=== PATIENT | female | born 1975 | race Caucasian/White ===

== ENCOUNTER 2020-11-06 07:40 | Outpatient (REF) | payer BC, SELFPAY ==
[2020-11-06 08:05] LABS: MANUAL DIFF FLAG NO
[2020-11-06 08:12] LABS: Eosinophils Absolute Auto 0.2 X10*3/uL (0.0-0.4); Eosinophils Percent Auto 4.1 % (0-4); Hematocrit 41.3 % (37-47); Hemoglobin 13.9 g/dl (12.0-16.0); Imm Gran Abs Auto 0.02 X10*3/uL (0.00-0.03); Imm Gran Pct Auto 0.5 % (0.0-0.4); Lymphocytes Absolute Auto 1.5 X10*3/uL (1.2-4.9); Mean Corpuscular HGB Conc 33.7 g/dl (31.0-35.0); Mean Corpuscular Hemoglobin 29.8 pg (27.0-33.0); Mean Corpuscular Volume 88.4 fL (80-98); Mean Platelet Volume 10.3 fL (9.4-12.3); Monocytes Absolute Auto 0.3 X10*3/uL (0.1-1.2); Neutrophils Absolute Auto 2.1 X10*3/uL (2.0-8.3); Neutrophils Percent Auto 49.4 % (45-73); Platelet Count 204 X10*3/uL (160-400); Red Blood Count 4.67 X10*6/uL (4.20-5.50); Red Cell Distribution Width 12.3 % (11.0-16.0); White Blood Count 4.1 X10*3/uL (4.8-10.8)
[2020-11-06 08:37] LABS: Alanine Aminotransferase 12 U/L (0-31); Albumin Level 4.4 g/dL (3.5-5.0); Alkaline Phosphatase 57 U/L (39-117); Anion Gap 9 (12-20); Aspartate Amino Transferase 16 U/L (5-31); Bilirubin Total 0.6 mg/dL (0.0-1.0); Blood Urea Nitrogen 14 mg/dL (9-16); Calcium 9.2 mg/dL (8.4-10.2); Carbon Dioxide 26 mmol/L (22-29); Chloride 107 mmol/L (96-108); Cholesterol 202 mg/dL; Estimated Glomerular Filt Rate > 60; Glucose Fasting 96 mg/dL (60-99); HDL Cholesterol 47 mg/dL; LDL Cholesterol Calculated 135 mg/dl; Magnesium 2.1 mg/dL (1.6-2.6); Phosphorus 3.5 mg/dL (2.7-4.5); Potassium 4.4 mmol/L (3.3-5.1); Sodium 138 mmol/L (135-145); Total Protein 6.7 g/dL (6.5-8.0); Triglycerides 100 mg/dL
[2020-11-06 12:14] LABS: Vitamin D 25-OH Total 30.9 ng/mL (>30)
[2020-11-06 17:35] LABS: Folate 4.6 ng/mL (> or = 4.0); Vitamin B12 245 pg/mL (200-900)
== END 2020-11-06 07:41 | disposition home or self-care (01) ==
LOC: HO.LAB 07:40
PROVIDERS: PCP Internal Medicine; Visit Provider Internal Medicine
DX: Z00.00 Encounter for general adult medical examination without abnormal findings (principal); K90.0 Celiac disease
CPT/HCPCS: 36415; 80053; 80061; 82306; 82607; 82746; 83735; 84100; 85025

== ENCOUNTER 2022-07-11 08:34 | Outpatient (REF) | payer BC, SELFPAY ==
[2022-07-11 08:53] LABS: MANUAL DIFF FLAG NO
[2022-07-11 09:29] LABS: Basophils Absolute Auto 0.1 X10*3/uL (0.0-0.2); Basophils Percent Auto 1.1 % (0-2); Eosinophils Absolute Auto 0.1 X10*3/uL (0.0-0.4); Eosinophils Percent Auto 2.6 % (0-4); Hematocrit 40.5 % (37.0-47.0); Hemoglobin 13.8 g/dl (12.0-16.0); Imm Gran Abs Auto 0.01 X10*3/uL (0.00-0.03); Imm Gran Pct Auto 0.2 % (0.0-0.4); Lymphocytes Absolute Auto 1.5 X10*3/uL (1.2-4.9); Lymphocytes Percent Auto 32.5 % (20-40); Mean Corpuscular HGB Conc 34.1 g/dl (31.0-35.0); Mean Corpuscular Hemoglobin 30.1 pg (27.0-33.0); Mean Corpuscular Volume 88.2 fL (80.0-98.0); Mean Platelet Volume 10.4 fL (9.4-12.3); Monocytes Absolute Auto 0.3 X10*3/uL (0.1-1.2); Monocytes Percent Auto 6.4 % (2-11); Neutrophils Absolute Auto 2.6 x10*3/uL (2.0-8.3); Neutrophils Percent Auto 57.2 % (45-73); Platelet Count 211 X10*3/uL (160-400); Red Blood Count 4.59 X10*6/uL (4.20-5.50); Red Cell Distribution Width 12.2 % (11.0-16.0); White Blood Count 4.5 X10*3/uL (4.8-10.8)
[2022-07-11 10:09] LABS: Alanine Aminotransferase 13 U/L (0-31); Alkaline Phosphatase 49 U/L (39-117); Anion Gap 10 (12-20); Aspartate Amino Transferase 15 U/L (5-31); Bilirubin Total 0.8 mg/dL (0.0-1.0); Blood Urea Nitrogen 22 mg/dL (9-16); Calcium 8.6 mg/dL (8.4-10.2); Carbon Dioxide 25 mmol/L (22-29); Chloride 109 mmol/L (96-108); Cholesterol 236 mg/dL; Estimated Glomerular Filt Rate > 60; Glucose Fasting 84 mg/dL (60-99); HDL Cholesterol 51 mg/dL; LDL Cholesterol Calculated 168 mg/dl; Magnesium 1.9 mg/dL (1.6-2.6); Potassium 4.4 mmol/L (3.3-5.1); Sodium 140 mmol/L (135-145); Total Protein 6.1 g/dL (6.5-8.0); Triglycerides 86 mg/dL
[2022-07-11 10:28] LABS: Vitamin D 25-OH Total 53.4 ng/mL (>30)
== END 2022-07-11 08:35 | disposition home or self-care (01) ==
LOC: HO.LAB 08:34
PROVIDERS: PCP Internal Medicine; Visit Provider Internal Medicine
DX: Z00.00 Encounter for general adult medical examination without abnormal findings (principal); I51.9 Heart disease, unspecified; G25.81 Restless legs syndrome
CPT/HCPCS: 36415; 80053; 80061; 82306; 83735; 85025

== ENCOUNTER 2022-08-27 15:40 | Outpatient (REF) | payer BC, SELFPAY ==
[2022-08-27 15:54] LABS: MANUAL DIFF FLAG NO
[2022-08-27 16:35] LABS: Basophils Percent Auto 0.6 % (0-2); Eosinophils Absolute Auto 0.2 X10*3/uL (0.0-0.4); Eosinophils Percent Auto 2.8 % (0-4); Hematocrit 38.5 % (37.0-47.0); Hemoglobin 13.3 g/dl (12.0-16.0); Imm Gran Abs Auto 0.02 X10*3/uL (0.00-0.03); Imm Gran Pct Auto 0.3 % (0.0-0.4); Lymphocytes Absolute Auto 1.8 X10*3/uL (1.2-4.9); Lymphocytes Percent Auto 27.7 % (20-40); Mean Corpuscular HGB Conc 34.5 g/dl (31.0-35.0); Mean Corpuscular Hemoglobin 30.4 pg (27.0-33.0); Mean Corpuscular Volume 87.9 fL (80.0-98.0); Mean Platelet Volume 10.4 fL (9.4-12.3); Monocytes Absolute Auto 0.3 X10*3/uL (0.1-1.2); Monocytes Percent Auto 5.1 % (2-11); Neutrophils Absolute Auto 4.1 x10*3/uL (2.0-8.3); Neutrophils Percent Auto 63.5 % (45-73); Platelet Count 251 X10*3/uL (160-400); Red Blood Count 4.38 X10*6/uL (4.20-5.50); Red Cell Distribution Width 12.1 % (11.0-16.0); White Blood Count 6.5 X10*3/uL (4.8-10.8)
[2022-08-27 17:00] LABS: Anion Gap 10 (12-20); Blood Urea Nitrogen 13 mg/dL (9-16); C Reactive Protein < 0.10 mg/dL (< or = 0.50); Calcium 9.2 mg/dL (8.4-10.2); Carbon Dioxide 28 mmol/L (22-29); Chloride 106 mmol/L (96-108); Estimated Glomerular Filt Rate > 60; Glucose Random 86 mg/dL (60-115); Potassium 4.5 mmol/L (3.3-5.1); Sodium 139 mmol/L (135-145)
[2022-08-27 17:15] LABS: Erythrocyte Sedimentation Rate 4 MM/HR (0-20)
== END 2022-08-27 15:41 | disposition home or self-care (01) ==
LOC: HO.LAB 15:40
PROVIDERS: PCP Internal Medicine; Visit Provider Internal Medicine
DX: M79.641 Pain in right hand (principal)
CPT/HCPCS: 36415; 80048; 82550; 85025; 85652; 86140

== ENCOUNTER 2022-11-17 20:07 | Outpatient (REF) | payer BC, SELFPAY | END 2022-11-17 20:08 | disposition home or self-care (01) | LOC: HO.LNP 20:07 | PROVIDERS: Visit Provider Internal Medicine | DX: J02.9 Acute pharyngitis, unspecified (principal) | CPT/HCPCS: 87070; 87147 ==

== ENCOUNTER 2025-01-10 12:01 | Outpatient (AMB) | payer BC, SELFPAY ==
--- OUTSIDE RECORDS SUMMARY | 2024-10-30 11:15 | XMS_ITS ---
Author Organization [facility] [address] Address [address] [place] [address] Care Team Providers Care Brick Offbearer Name Role Phone PACHECO NICOLAS Unavailable [phone] REASON FOR VISIT labs Encounters Encounter Location Date Provider Diagnosis [facility] [address] [place] [address] 10/30/2024 NICOLAS BERGMAN Plan Of Treatment Next Appt Details Provider Name:NICOLAS MANDEEP Garcia, 02/26/2025 03:15:00 PM, [address], [place], [address], Provider Name:NICOLAS MANDEEP Garcia, 11/08/2025 09:00:00 AM, [address], [place], [address], Progress Notes * Kenneth PEREZaDOB:1975 (49 yo F)Acc No.[id number]:10/30/2024 CPE Patient: Farzana ARTIS Provider: Anthony BERGMAN PA-C :1975 A ge:49 Y S ex:Female Date:10/30/2024 Address:[address] [place] [address] [id number] Subjective: * Chief Complaints: * 1 . Labs. * Medical History: Objective: * Vitals: Assessment: Plan: * Treatment: * Images: Billing Information: * Visit Code: * Procedure Codes: Care Plan Details* * Electronic signature of CHARLIE BERGMAN PA-C on 01/10/2025 at 02:53 PM EDT Sign off status: Pending * Provider: Anthony BERGMAN PA-C Date: 0 10/30/2024 Generated for Cody patel/Shaka/Pavan on: 0 01/10/2025 02:53 PM EDT
--- NOTE | 2025-01-10 12:15 | A.OFFVIS_ITS ---
Vital Signs 01/10/25 12:18 Height 6 ft 2 in Weight 185 lb BMI 23.7 Blood Pressure Location Lt brachial Position Sitting Intake Visit Reasons: Colonoscopy Screening Intake Note: Patient new consult for 1st pre Colonoscopy screening. Patient denies any GI issues. Store Worker Required: No Accompanied by: Self / Same As Patient Allergies gluten Allergy (Intermediate, Verified 01/10/25 12:45) Diarrhea Medication List - Last Reconciled 01/10/25 by Rubi Alves CNP amitriptyline 25 mg PO BEDTIME atorvastatin 10 mg PO DAILY ropinirole 0.5 mg PO QPM HPI HPI Colonoscopy Screening: Details: Patient is a 49-year-old female with PMH of celiac, anxiety, depression, hyperlipidemia and restless leg syndrome. Referred by PCP for pre colonoscopy screening. Farzana reports a history of celiac disease diagnosed at age 38, managed with a gluten-free diet. She describes intermittent bowel irregularity over the past several years, characterized by episodes of diarrhea?typically lasting approximately two days?following inadvertent gluten exposure, often when consuming food outside the home. This is followed by constipation, with diminished or absent bowel movements for 7?10 days post-exposure. At baseline, with adherence to a gluten-free regimen, she passes stool every two days, often firm and requiring some straining for evacuation. She intermittently uses Senna- based (vegetable) laxatives and stool softeners as needed to relieve constipation, but avoids daily use due to adverse effects and concerns over long-term use of laxatives. She occasionally feels bloated and experiences abdominal discomfort after gluten exposure, but describes symptoms as bearable. Current management is primarily nonpharmacologic, focusing on dietary vigilance, increased water, and fiber, with only episodic laxatives. Medical history includes hyperlipidemia, for which she is prescribed statin therapy. Psychiatric history noted for anxiety and insomnia, previously managed with medication. Patient denies: fever/chills, n/v, appetite changes, pyrosis, regurgitation, dysphasia, unintentional wt loss or melena/hematochezia. Social hx: -Diet: Strict gluten-free diet with occasional unintended exposures, variable fiber intake, attempts at increased water consumption -Alcohol: Approximately every 2 weeks, 2?4 drinks per occasion -denies recreational drug use -non-smoker - family hx as below -denies personal hx of CA -denies significant cardiopulmonary history -tolerated anesthesia in the past without difficulty. PFSH Medical History (Updated 01/10/25 @ 13:39 by Rubi Alves CNP) Hyperlipemia Celiac disease Colon cancer screening Family History (Updated 01/10/25 @ 12:26 by Seda Courtney) Father Prostate CA Stroke Mother Hyperlipemia Hyperthyroidism Paternal Grandfather Bone cancer Maternal Grandfather No problems noted. Maternal Grandmother Hyperlipemia Heart disease Social History (Updated 12/26/24 @ 09:39 by Seda Courtney) Household Members: Family Alcohol intake: current Alcohol intake frequency: holidays/special occasions only Patient Tobacco Use Status: Never used Tobacco Use of substances other than those prescribed or required for medical reasons: No Review of Systems Const Reports as per HPI ENT Reports as per HPI Card Reports as per HPI Resp Reports as per HPI GI Reports as per HPI Reports as per HPI Physical Exam Vital Signs: BMI result Body Mass Index 23.7 Const General: healthy appearing, no acute distress and well developed Nutritional Appearance: average body habitus Orientation/consciousness: patient oriented x3 HEENT Head: Yes normal to inspection, Yes normocephalic and Yes atraumatic Face and sinus: Yes normal facial exam Eyes General: appearance normal, both eyes and all related structures Neck Neck: Yes normal visual inspection Resp Effort & Inspection: normal respiratory effort, able to speak in complete sent ences, no tracheal deviation and symmetric chest movement Cardio Jugular venous distension: no JVD GI Inspection: Yes normal to inspection and No distended Palpation (GI): Soft to palpation, not firm, nontender and No hepatosplenomegaly present Auscultation: normoactive bowel sounds Neuro General: patient oriented x3 Gait exam (Neuro): Normal gait present Psych Appearance: grossly normal Mental Status: mental status grossly normal Speech and movement: Normal speech and movement present Affect: normal affect Attitude: cooperative Thought process: Normal thought process present Thought content: Normal thought content present Insight: Good insight present (Psych) Judgement: Good judgement present (Psych) Assessment & Plan Assessment & Plan (1) Colon cancer screening: Code(s): Z12.11 - Encounter for screening for malignant neoplasm of colon Category: Medical Plan: Due for index screening colonoscopy + family hx of high-risk polyp, personal hx of celiac Medications: -prescriptions for laxative tablets and MiraLax sent to pharmacy; instructions for Gatorade purchase and clear liquid diet given.. Patient educated on scheduling process, procedure preparation, including avoiding certain foods and ensuring clear liquid intake Advised on necessity for ride post-procedure due to sedation. (2) Celiac disease: Code(s): K90.0 - Celiac disease Category: Medical Plan: Longstanding celiac; symptomatic flares correlate with gluten exposure; otherwise, no evidence of systemic involvement or complications. Additional Testing: - Colonoscopy as above - Upper endoscopy (EGD) at time of colonoscopy to assess for mucosal changes c/w celiac - Retrieval of updated labs, including CBC, CMP, from PCP for recent results (most recent on file satisfactory; no anemia, renal, or hepatic dysfunction) Medication Management: - Prescribed Miralax (PEG 3350) as needed for relief/prevention of constipation; recommend using in lieu of stimulant (Senna-based) laxatives for safety in long- term/PRN use - Continue current medications for comorbidities as prescribed by respective providers Lifestyle Recommendations: - Reinforce strict gluten-free dietary adherence - Increase daily water intake and dietary fiber as tolerated; trial fiber supplement if dietary measures insufficient - Monitor for signs of obstruction (no BM, inability to pass gas, severe/worsening abdominal pain, N/V) - If constipation worsens or prep becomes difficult prior to procedure, contact GI office for further guidance Follow-Up: - Routine follow-up after colonoscopy and EGD to review histology and ensure clearance of colorectal screening - Sooner evaluation if new alarm symptoms (bleeding, persistent vomiting, complete obstipation, severe pain) (3) Hyperlipemia: Code(s): E78.5 - Hyperlipidemia, unspecified Category: Medical Qualifiers: Hyperlipidemia type: mixed hyperlipidemia Qualified Code(s): E78.2 - Mixed hyperlipidemia Plan: ongoing management with statin based on family and genetic risk Additional Testing: No acute needs; monitor lipids per PCP Medication Management: Continue atorvastatin as directed; discuss any concerns or medication intolerances with PCP Lifestyle Recommendations: Consideration of intermittent fasting, as discussed, and dietary adjustments per guideline-directed therapy Follow-Up: At discretion of PCP; GI to coordinate where appropriate Plan Follow-up after endoscopy or sooner as needed Time: I spent a total of 30 minutes on the date of encounter which includes: Preparing to see the patient (reviewed previous documentation, test results and medical history) Performing a medically appropriate exam and/or evaluation Ordering medications, tests, and procedures Documenting clinical information in the health record Orders: Referrals GI Procedure Notification K90.0 - Celiac disease, Z12.11 - Encounter for screening for malignant neoplasm of colon Medications: New polyethylene glycol 3350 (Miralax) Take 17G (one cap full) daily with 8oz of water 17 grams PO DAILY 510 grams 2RF constipation 30 days polyethylene glycol 3350 (Miralax) per colonoscopy prep instructions 238 grams PO ONCE 238 grams 0RF bisacodyl Take per colonoscopy instructions 5 mg PO ONCE 4 tabs 0RF Coding Level of Care Code New Pt New Pt Level 3 (29271) Patient Type New Diagnoses Colon cancer screening Z12.11 Celiac disease K90.0 Mixed hyperlipidemia E78.2 Hyperlipidemia type: mixed hyperlipidemia
[2025-01-10 12:18] VITALS: BMI 23.7
--- OUTSIDE RECORDS SUMMARY | 2025-01-10 14:53 | XMS_ITS | Patient Health Record ---
Author Organization [facility] [address] Address [address] [place] [address] Care Team Providers Care Relay Shop Tester Name Role Phone NICOLAS BERGMAN Unavailable [phone] Allergies Allergen (clinical drug ingredient) Drug/Non Drug Allergy documented on EMR Reaction Allergy Type Onset Date Status celiac(gluten) (uncoded) Unknown Allergy Active seasonal (uncoded) Unknown Allergy A ctive Results Component Value Reference Range Notes TSH Rfx on Abnormal to Free [id number] Reviewed date:10/25/2024 07:37:15 AM Interpretation: Performing Lab:[facility], [address] [facility], Phone - [phone], Director - MDMauradry Notes/Report: TSH 2.460 0.450-4.500 uIU/mL Comp. Metabolic Panel [id number] Reviewed date:10/25/2024 07:37:15 AM Interpretation: Performing Lab:[facility], [address] [facility], Phone - [phone], Director - MDJodry Notes/Report: Glucose 80 70-99 mg/dL BUN 13 6-24 mg/dL Creatinine 0.91 0.57-1.00 mg/dL eGFR 78 >59 mL/min/1.73 BUN/Creatinine Ratio 14 9-23 Sodium 140 134-144 mmol/L Potassium 4.3 3.5-5.2 mmol/L Chloride 105 96-106 mmol/L Carbon Dioxide, Total 23 20-29 mmol/L Calcium 9.0 8.7-10.2 mg/dL Protein, Total 6.0 6.0-8.5 g/dL Albumin 4.2 3.9-4.9 g/dL Globulin, Total 1.8 1.5-4.5 g/dL Bilirubin, Total 0.3 0.0-1.2 mg/dL Alkaline Phosphatase 65 44-121 IU/L AST (SGOT) 17 0-40 IU/L ALT (SGPT) 17 0-32 IU/L Lipid Panel-[id number] Reviewed date:10/25/2024 07:37:27 AM Interpretation: Performing Lab:[facility], [address] [facility], Phone - [phone], Director - Eulalio Notes/Report: Cholesterol, Total 233 100-199 mg/dL Triglycerides 120 0-149 mg/dL HDL Cholesterol 47 >39 mg/dL VLDL Cholesterol Javi 22 5-40 mg/dL LDL Chol Calc (NIH) 164 0-99 mg/dL Vitamin D, [id number] Reviewed date:10/25/2024 07:37:15 AM Interpretation: Performing Lab:[facility] [place], [address] [place] [address], Phone - [phone], Director - Eulalio Notes/Report: Vitamin D, 25-Hydroxy 43.0 30.0-100.0 ng/mL Vitamin D deficiency has been defined by the [place] of Medicine and an Endocrine Society practice guideline as a level of serum 25-OH vitamin D less than 20 ng/mL (1,2). The Endocrine Society went on to further define vitamin D insufficiency as a level between 21 and 29 ng/mL (2). 1. IOM ([place] of Medicine). 2010. Dietary reference intakes for calcium and D. [place]: The National Academies Press. 2. Daksha MF, Josselyn NC, Stefany BISHOP, et al. Evaluation, treatment, and prevention of vitamin D deficiency: an Endocrine Society clinical practice guideline. JCEM. 2010; 96(7):1911-30. CBC With Differential/Platel et-[id number] Reviewed date:10/25/2024 07:37:15 AM Interpretation: Performing Lab:[facility], [address] [facility], [place], Phone - [phone], Director - Eulalio Notes/Report: WBC 4.3 3.4-10.8 x10E3/uL RBC 4.37 3.77-5.28 x10E6/uL Hemoglobin 13.1 11.1-15.9 g/dL Hematocrit 40.6 34.0-46.6 % MCV 93 79-97 fL MCH 30.0 26.6-33.0 pg MCHC 32.3 31.5-35.7 g/dL RDW 12.7 11.7-15.4 % Platelets 199 150-450 x10E3/uL Neutrophils 53 Not Estab. % Lymphs 33 Not Estab. % Monocytes 6 Not Estab. % Eos 7 Not Estab. % Basos 1 Not Estab. % Neutrophils (Absolute) 2.3 1.4-7.0 x10E3/uL Lymphs (Absolute) 1.4 0.7-3.1 x10E3/uL Monocytes(Absolute) 0.3 0.1-0.9 x10E3/uL Eos (Absolute) 0.3 0.0-0.4 x10E3/uL Baso (Absolute) 0.1 0.0-0.2 x10E3/uL Immature Granulocytes 0 Not Estab. % Immature Grans (Abs) 0.0 0.0-0.1 x10E3/uL Hemoglobin [id number] Reviewed date:10/25/2024 07:37:15 AM Interpretation: Performing Lab:[facility], [address], [place], Phone - [phone], Director - Eulalio Notes/Report: Hemoglobin A1c 5.4 4.8-5.6 % . Prediabetes: 5.7 - 6.4 Diabetes: >6.4 Glycemic control for adults with diabetes: <7.0 Reason For Referral No Information Medications Medication SIG (Take, Route, Frequency, Duration) Notes Start Date End Date Status Atorvastatin Calcium 10 MG 1 tablet Oral ly Once a day; Duration: 90 days 11/06/2024 Active Vitamin E Active Vitamin D3 Active Calcium Active rOPINIRole HCl 0.5 MG 1 tablet 1-3 hours before bedtime Oral; Duration: 90 days Active Amitriptyline HCl 25 MG 1 tablet at bedt melissa Orally; Duration: 90 days Active Magnesium Active Problems Problem Type SNOMED Code ICD Code Onset Dates Problem Status W/U Status Risk Notes Problem Celiac disease (015672661) Celiac disease (K90.0) Active confirmed Problem Irritable bowel syndrome characterized by constipation (061449958) Irritable bowel syndrome with constipation (K58.1) Active confirmed Problem Restless legs syndrome (02786054) Restless leg syndrome (G25.81) Active confirmed Problem Anxiety depression (882525947) Anxiety with depression (F41.8) Active confirmed Problem Hyperlipidemia (91209923) Hyperlipidemia (E78.5) Active confirmed Vital Signs Heart Rate 66 /min 11/06/2024 Oximetry 98 % 11/06/2024 Blood pressure diastolic 80 mm Hg 11/06/2024 Height 73 in 11/06/2024 Blood pressure systolic 124 mm Hg 11/06/2024 Weight 187.6 lbs 11/06/2024 BMI 24.75 kg/m2 11/06/2024 Encounters Encounter Location Date Provider Diagnosis [facility] [address] 09/21/2024 NICOLAS BERGMAN Celiac disease K90.0 ; Anxiety with depression F41.8 ; Hyperlipidemia E78.5 ; Restless leg syndrome G25.81 and Encounter for examination of blood pressure without abnormal findings Z01.30 [facility] [address] 11/06/2024 NICOLAS BERGMAN Anxiety with depress ion F41.8 ; Annual physical exam Z00.00 ; Celiac disease K90.0 ; Irritable bowel syndrome with constipation K58.1 ; Hyperlipidemia E78.5 ; Restless leg syndrome G25.81 and Encounter for examination of blood pressure without abnormal findings Z01.30 [facility] [address] 09/22/2024 NICOLAS BERGMAN Encounter for screen ing colonoscopy Z12.11 [facility] [address] 11/28/2024 NICOLAS OGDEN [facility] [address] [place] [address] 11/30/2024 NICOLAS ALEMANHAM [facility] [address] 12/05/2024 NICOLAS OGDEN [facility] [address] 08/16/2024 NICOLAS OGDEN [facility] [address] 08/16/2024 NICOLAS OGDEN [facility] [address] [address] 09/19/2024 NICOLAS OGDEN [facility] [address] [address] 09/22/2024 NICOLAS ALEMANHAM [facility] [address] [address] 09/22/2024 NICOLAS OGDEN Assessments Encounter Date Diagnosis (ICD Code) Assessment Notes Treatment Notes Treatment Clinical Notes Section Notes 09/21/2024 Celiac disease (ICD-10 - K90.0) Farzana is a 49-year-old female with a PMH of celiac, anxiety, depression, HLD, restless leg that presents today to establish care as a new patient. #Labs: Baseline laboratory evaluation including CBC, CMP, lipid panel, hemoglobin A1c, TSH, and vitamin D ordered to be evaluated at time of CPE. #Celiac: Patient is gluten-free. Previously followed with [facility] , records requested for review. #Anxiety/depress ion: Patient previously taking antidepressant, discontinued during COVID. Patient has since developed a good relationship with personal wellness and is established with coping mechanisms. Denies need for medication. No SI/HI. #HLD: Reports history of hyperlipidemia. Previously taking atorvastatin 10 mg once daily, patient self discontinued. Feels she has made lifestyle changes and would like to reassess current lipid levels prior to considering reinitiating treatment. #Restless leg: Currently taking ropinirole 0.5 mg and amitriptyline 25 mg at bedtime with adequate control of symptoms. Refills provided. All questions answered to the patients satisfaction. Patient demonstrates understanding of diagnosis and treatments discussed. Follow-up in 4 weeks for CPE with lab review, sooner should any questions/concer ns arise. Case discussed with collaborating physician Jessica Johnson who has reviewed the assessment/plan. Chart, medications, labs, and vital signs reviewed. Dictation completed with the use of [facility] voice recognition software, prone to medical misidentificatio ns and grammatical errors. All errors are unintentional. Although the practitioner does try to identify and correct errors, some may be present. Please do not hesitate to contact the practitioner for clarification. 09/21/2024 Anxiety with depression (ICD-10 - F41.8) Farzana is a 49-year-old female with a PMH of celiac, anxiety, depression, HLD, restless leg that presents today to establish care as a new patient. #Labs: Baseline laboratory evaluation including CBC, CMP, lipid panel, hemoglobin A1c, TSH, and vitamin D ordered to be evaluated at time of CPE. #Celiac: Patient is gluten-free. Previously followed with [facility] , records requested for review. #Anxiety/depress ion: Patient previously taking antidepressant, discontinued during COVID. Patient has since developed a good relationship with personal wellness and is established with coping mechanisms. Denies need for medication. No SI/HI. #HLD: Reports history of hyperlipidemia. Previously taking atorvastatin 10 mg once daily, patient self discontinued. Feels she has made lifestyle changes and would like to reassess current lipid levels prior to considering reinitiating treatment. #Restless leg: Currently taking ropinirole 0.5 mg and amitriptyline 25 mg at bedtime with adequate control of symptoms. Refills provided. All questions answered to the patients satisfaction. Patient demonstrates understanding of diagnosis and treatments discussed. Follow-up in 4 weeks for CPE with lab review, sooner should any questions/concer ns arise. Case discussed with collaborating physician Jessica Johnson who has reviewed the assessment/plan. Chart, medications, labs, and vital signs reviewed. Dictation completed with the use of [facility] voice recognition software, prone to medical misidentificatio ns and grammatical errors. All errors are unintentional. Although the practitioner does try to identify and correct errors, some may be present. Please do not hesitate to contact the practitioner for clarification. 09/22/2024 Encounter for screening colonoscopy (ICD-10 - Z12.11) 11/06/2024 Annual physical exam (ICD-10 - Z00.00) Farzana is a 49-year-old female with a PMH of celiac, anxiety, depression, HLD, restless leg that presents today to establish care as a new patient. #Labs: Baseline laboratory evaluation including CBC, CMP, lipid panel, hemoglobin A1c, TSH, and vitamin D drawn 10/24/2024, reviewed today #Celiac: Patient is gluten-free. Struggles with constipation. Patient encouraged to continue hydrating adequately and also implement a bowel regimen. Recommending daily fiber supplement. Consider use of stool softener such as docusate or senna. Can use MiraLAX as needed. Also discussed option such as Linzess, sample provided. Reviewed proper use and side effects including but not limited to diarrhea. #Anxiety/depress ion: Patient previously taking antidepressant, discontinued during COVID. Patient has since developed a good relationship with personal wellness and is established with coping mechanisms. Denies need for medication. No SI/HI.PHQ-9: 2.5. #HLD: Total cholesterol elevated at 233, LDL 164. Patient encouraged to continue maintaing lifestyle changes. Plan to reinitate treatment with atorvastatin 10mg once daily. #Restless leg: Continue ropinirole 0.5 mg and amitriptyline 25 mg at bedtime. Patient seen and examined. Comprehensive discussion was done on the followin. Discussed the importance of a diet rich in fruit, vegetables, legumes and healthy fats. Patient advised to avoid processed food and carbohydrates, added sugars, and saturated/trans fats. When possible, prepare your own meals and avoid fast food. Read nutrition labels - avoid ingredients including high fructose corn syrup and preservatives. Be contentious of daily calorie intake and weight. 2. Discussed the importance of regular physical activity. Recommended a goal 6-10k steps or 30 minutes of walking per day. Discussed the benefit of weight-bearing exercise and strength training with proper body mechanics/safety precautions. Other activities including cycling, hiking, etc. are recommended and encouraged. Patient advised to seek medical attention for any SOB, chest pain, muscle or joint pain associated with exercise. 3. Discussed risks and benefits of age-appropriate screening guidelines including but not limited to colonoscopy (due to establish care with GI 12/2024), mammogram (ordered), breast examinations, and PAP smears (UTD 2023). 4. Discussed safe driving, utilization of seat belts, and the importance of refraining from smartphone while driving. 5. Age-appropriate immunizations were discussed including but not limited to influenza vaccine, COVID-vaccine, Tdap vaccine, etc. All questions answered to the patients satisfaction. Patient demonstrates understanding of diagnosis and treatments discussed. Follow-up at next scheduled appointment, sooner should any questions/concer ns arise. Case discussed with collaborating physician Jessica Johnson who has reviewed the assessment/plan. Chart, medications, labs, and vital signs reviewed. Dictation completed with the use of [facility] voice recognition software, prone to medical misidentificatio ns and grammatical errors. All errors are unintentional. Although the practitioner does try to identify and correct errors, some may be present. Please do not hesitate to contact the practitioner for clarification. 11/06/2024 Anxiety with depression (ICD-10 - F41.8) Farzana is a 49-year-old female with a PMH of celiac, anxiety, depression, HLD, restless leg that presents today to establish care as a new patient. #Labs: Baseline laboratory evaluation including CBC, CMP, lipid panel, hemoglobin A1c, TSH, and vitamin D drawn 10/24/2024, reviewed today #Celiac: Patient is gluten-free. Struggles with constipation. Patient encouraged to continue hydrating adequately and also implement a bowel regimen. Recommending daily fiber supplement. Consider use of stool softener such as docusate or senna. Can use MiraLAX as needed. Also discussed option such as Linzess, sample provided. Reviewed proper use and side effects including but not limited to diarrhea. #Anxiety/depress ion: Patient previously taking antidepressant, discontinued during COVID. Patient has since developed a good relationship with personal wellness and is established with coping mechanisms. Denies need for medication. No SI/HI.PHQ-9: 2.5. #HLD: Total cholesterol elevated at 233, LDL 164. Patient encouraged to continue maintaing lifestyle changes. Plan to reinitate treatment with atorvastatin 10mg once daily. #Restless leg: Continue ropinirole 0.5 mg and amitriptyline 25 mg at bedtime. Patient seen and examined. Comprehensive discussion was done on the followin. Discussed the importance of a diet rich in fruit, vegetables, legumes and healthy fats. Patient advised to avoid processed food and carbohydrates, added sugars, and saturated/trans fats. When possible, prepare your own meals and avoid fast food. Read nutrition labels - avoid ingredients including high fructose corn syrup and preservatives. Be contentious of daily calorie intake and weight. 2. Discussed the importance of regular physical activity. Recommended a goal 6-10k steps or 30 minutes of walking per day. Discussed the benefit of weight-bearing exercise and strength training with proper body mechanics/safety precautions. Other activities including cycling, hiking, etc. are recommended and encouraged. Patient advised to seek medical attention for any SOB, chest pain, muscle or joint pain associated with exercise. 3. Discussed risks and benefits of age-appropriate screening guidelines including but not limited to colonoscopy (due to establish care with GI 12/2024), mammogram (ordered), breast examinations, and PAP smears (UTD 2023). 4. Discussed safe driving, utilization of seat belts, and the importance of refraining from smartphone while driving. 5. Age-appropriate immunizations were discussed including but not limited to influenza vaccine, COVID-vaccine, Tdap vaccine, etc. All questions answered to the patients satisfaction. Patient demonstrates understanding of diagnosis and treatments discussed. Follow-up at next scheduled appointment, sooner should any questions/concer ns arise. Case discussed with collaborating physician Jessica Johnson who has reviewed the assessment/plan. Chart, medications, labs, and vital signs reviewed. Dictation completed with the use of [facility] voice recognition software, prone to medical misidentificatio ns and grammatical errors. All errors are unintentional. Although the practitioner does try to identify and correct errors, some may be present. Please do not hesitate to contact the practitioner for clarification. 11/06/2024 Celiac disease (ICD-10 - K90.0) Farzana is a 49-year-old female with a PMH of celiac, anxiety, depression, HLD, restless leg that presents today to establish care as a new patient. #Labs: Baseline laboratory evaluation including CBC, CMP, lipid panel, hemoglobin A1c, TSH, and vitamin D drawn 10/24/2024, reviewed today #Celiac: Patient is gluten-free. Struggles with constipation. Patient encouraged to continue hydrating adequately and also implement a bowel regimen. Recommending daily fiber supplement. Consider use of stool softener such as docusate or senna. Can use MiraLAX as needed. Also discussed option such as Linzess, sample provided. Reviewed proper use and side effects including but not limited to diarrhea. #Anxiety/depress ion: Patient previously taking antidepressant, discontinued during COVID. Patient has since developed a good relationship with personal wellness and is established with coping mechanisms. Denies need for medication. No SI/HI.PHQ-9: 2.5. #HLD: Total cholesterol elevated at 233, LDL 164. Patient encouraged to continue maintaing lifestyle changes. Plan to reinitate treatment with atorvastatin 10mg once daily. #Restless leg: Continue ropinirole 0.5 mg and amitriptyline 25 mg at bedtime. Patient seen and examined. Comprehensive discussion was done on the followin. Discussed the importance of a diet rich in fruit, vegetables, legumes and healthy fats. Patient advised to avoid processed food and carbohydrates, added sugars, and saturated/trans fats. When possible, prepare your own meals and avoid fast food. Read nutrition labels - avoid ingredients including high fructose corn syrup and preservatives. Be contentious of daily calorie intake and weight. 2. Discussed the importance of regular physical activity. Recommended a goal 6-10k steps or 30 minutes of walking per day. Discussed the benefit of weight-bearing exercise and strength training with proper body mechanics/safety precautions. Other activities including cycling, hiking, etc. are recommended and encouraged. Patient advised to seek medical attention for any SOB, chest pain, muscle or joint pain associated with exercise. 3. Discussed risks and benefits of age-appropriate screening guidelines including but not limited to colonoscopy (due to establish care with GI 12/2024), mammogram (ordered), breast examinations, and PAP smears (UTD 2023). 4. Discussed safe driving, utilization of seat belts, and the importance of refraining from smartphone while driving. 5. Age-appropriate immunizations were discussed including but not limited to influenza vaccine, COVID-vaccine, Tdap vaccine, etc. All questions answered to the patients satisfaction. Patient demonstrates understanding of diagnosis and treatments discussed. Follow-up at next scheduled appointment, sooner should any questions/concer ns arise. Case discussed with collaborating physician Jessica Johnson who has reviewed the assessment/plan. Chart, medications, labs, and vital signs reviewed. Dictation completed with the use of [facility] voice recognition software, prone to medical misidentificatio ns and grammatical errors. All errors are unintentional. Although the practitioner does try to identify and correct errors, some may be present. Please do not hesitate to contact the practitioner for clarification. 09/21/2024 Hyperlipidemia (ICD-10 - E78.5) Farzana is a 49-year-old female with a PMH of celiac, anxiety, depression, HLD, restless leg that presents today to establish care as a new patient. #Labs: Baseline laboratory evaluation including CBC, CMP, lipid panel, hemoglobin A1c, TSH, and vitamin D ordered to be evaluated at time of CPE. #Celiac: Patient is gluten-free. Previously followed with [facility] , records requested for review. #Anxiety/depress ion: Patient previously taking antidepressant, discontinued during COVID. Patient has since developed a good relationship with personal wellness and is established with coping mechanisms. Denies need for medication. No SI/HI. #HLD: Reports history of hyperlipidemia. Previously taking atorvastatin 10 mg once daily, patient self discontinued. Feels she has made lifestyle changes and would like to reassess current lipid levels prior to considering reinitiating treatment. #Restless leg: Currently taking ropinirole 0.5 mg and amitriptyline 25 mg at bedtime with adequate control of symptoms. Refills provided. All questions answered to the patients satisfaction. Patient demonstrates understanding of diagnosis and treatments discussed. Follow-up in 4 weeks for CPE with lab review, sooner should any questions/concer ns arise. Case discussed with collaborating physician Jessica Johnson who has reviewed the assessment/plan. Chart, medications, labs, and vital signs reviewed. Dictation completed with the use of [facility] voice recognition software, prone to medical misidentificatio ns and grammatical errors. All errors are unintentional. Although the practitioner does try to identify and correct errors, some may be present. Please do not hesitate to contact the practitioner for clarification. 09/21/2024 Restless leg syndrome (ICD-10 - G25.81) Farzana is a 49-year-old female with a PMH of celiac, anxiety, depression, HLD, restless leg that presents today to establish care as a new patient. #Labs: Baseline laboratory evaluation including CBC, CMP, lipid panel, hemoglobin A1c, TSH, and vitamin D ordered to be evaluated at time of CPE. #Celiac: Patient is gluten-free. Previously followed with [facility] , records requested for review. #Anxiety/depress ion: Patient previously taking antidepressant, discontinued during COVID. Patient has since developed a good relationship with personal wellness and is established with coping mechanisms. Denies need for medication. No SI/HI. #HLD: Reports history of hyperlipidemia. Previously taking atorvastatin 10 mg once daily, patient self discontinued. Feels she has made lifestyle changes and would like to reassess current lipid levels prior to considering reinitiating treatment. #Restless leg: Currently taking ropinirole 0.5 mg and amitriptyline 25 mg at bedtime with adequate control of symptoms. Refills provided. All questions answered to the patients satisfaction. Patient demonstrates understanding of diagnosis and treatments discussed. Follow-up in 4 weeks for CPE with lab review, sooner should any questions/concer ns arise. Case discussed with collaborating physician Jessica Johnson who has reviewed the assessment/plan. Chart, medications, labs, and vital signs reviewed. Dictation completed with the use of [facility] voice recognition software, prone to medical misidentificatio ns and grammatical errors. All errors are unintentional. Although the practitioner does try to identify and correct errors, some may be present. Please do not hesitate to contact the practitioner for clarification. 11/06/2024 Irritable bowel syndrome with constipation (ICD-10 - K58.1) Farzana is a 49-year-old female with a PMH of celiac, anxiety, depression, HLD, restless leg that presents today to establish care as a new patient. #Labs: Baseline laboratory evaluation including CBC, CMP, lipid panel, hemoglobin A1c, TSH, and vitamin D drawn 10/24/2024, reviewed today #Celiac: Patient is gluten-free. Struggles with constipation. Patient encouraged to continue hydrating adequately and also implement a bowel regimen. Recommending daily fiber supplement. Consider use of stool softener such as docusate or senna. Can use MiraLAX as needed. Also discussed option such as Linzess, sample provided. Reviewed proper use and side effects including but not limited to diarrhea. #Anxiety/depress ion: Patient previously taking antidepressant, discontinued during COVID. Patient has since developed a good relationship with personal wellness and is established with coping mechanisms. Denies need for medication. No SI/HI.PHQ-9: 2.5. #HLD: Total cholesterol elevated at 233, LDL 164. Patient encouraged to continue maintaing lifestyle changes. Plan to reinitate treatment with atorvastatin 10mg once daily. #Restless leg: Continue ropinirole 0.5 mg and amitriptyline 25 mg at bedtime. Patient seen and examined. Comprehensive discussion was done on the followin. Discussed the importance of a diet rich in fruit, vegetables, legumes and healthy fats. Patient advised to avoid processed food and carbohydrates, added sugars, and saturated/trans fats. When possible, prepare your own meals and avoid fast food. Read nutrition labels - avoid ingredients including high fructose corn syrup and preservatives. Be contentious of daily calorie intake and weight. 2. Discussed the importance of regular physical activity. Recommended a goal 6-10k steps or 30 minutes of walking per day. Discussed the benefit of weight-bearing exercise and strength training with proper body mechanics/safety precautions. Other activities including cycling, hiking, etc. are recommended and encouraged. Patient advised to seek medical attention for any SOB, chest pain, muscle or joint pain associated with exercise. 3. Discussed risks and benefits of age-appropriate screening guidelines including but not limited to colonoscopy (due to establish care with GI 12/2024), mammogram (ordered), breast examinations, and PAP smears (UTD 2023). 4. Discussed safe driving, utilization of seat belts, and the importance of refraining from smartphone while driving. 5. Age-appropriate immunizations were discussed including but not limited to influenza vaccine, COVID-vaccine, Tdap vaccine, etc. All questions answered to the patients satisfaction. Patient demonstrates understanding of diagnosis and treatments discussed. Follow-up at next scheduled appointment, sooner should any questions/concer ns arise. Case discussed with collaborating physician Jessica Johnson who has reviewed the assessment/plan. Chart, medications, labs, and vital signs reviewed. Dictation completed with the use of [facility] voice recognition software, prone to medical misidentificatio ns and grammatical errors. All errors are unintentional. Although the practitioner does try to identify and correct errors, some may be present. Please do not hesitate to contact the practitioner for clarification. 09/21/2024 Encounter for examination of blood pressure without abnormal findings (ICD-10 - Z01.30) Farzana is a 49-year-old female with a PMH of celiac, anxiety, depression, HLD, restless leg that presents today to establish care as a new patient. #Labs: Baseline laboratory evaluation including CBC, CMP, lipid panel, hemoglobin A1c, TSH, and vitamin D ordered to be evaluated at time of CPE. #Celiac: Patient is gluten-free. Previously followed with [facility] , records requested for review. #Anxiety/depress ion: Patient previously taking antidepressant, discontinued during COVID. Patient has since developed a good relationship with personal wellness and is established with coping mechanisms. Denies need for medication. No SI/HI. #HLD: Reports history of hyperlipidemia. Previously taking atorvastatin 10 mg once daily, patient self discontinued. Feels she has made lifestyle changes and would like to reassess current lipid levels prior to considering reinitiating treatment. #Restless leg: Currently taking ropinirole 0.5 mg and amitriptyline 25 mg at bedtime with adequate control of symptoms. Refills provided. All questions answered to the patients satisfaction. Patient demonstrates understanding of diagnosis and treatments discussed. Follow-up in 4 weeks for CPE with lab review, sooner should any questions/concer ns arise. Case discussed with collaborating physician Jessica Johnson who has reviewed the assessment/plan. Chart, medications, labs, and vital signs reviewed. Dictation completed with the use of [facility] voice recognition software, prone to medical misidentificatio ns and grammatical errors. All errors are unintentional. Although the practitioner does try to identify and correct errors, some may be present. Please do not hesitate to contact the practitioner for clarification. 11/06/2024 Hyperlipidemia (ICD-10 - E78.5) Farzana is a 49-year-old female with a PMH of celiac, anxiety, depression, HLD, restless leg that presents today to establish care as a new patient. #Labs: Baseline laboratory evaluation including CBC, CMP, lipid panel, hemoglobin A1c, TSH, and vitamin D drawn 10/24/2024, reviewed today #Celiac: Patient is gluten-free. Struggles with constipation. Patient encouraged to continue hydrating adequately and also implement a bowel regimen. Recommending daily fiber supplement. Consider use of stool softener such as docusate or senna. Can use MiraLAX as needed. Also discussed option such as Linzess, sample provided. Reviewed proper use and side effects including but not limited to diarrhea. #Anxiety/depress ion: Patient previously taking antidepressant, discontinued during COVID. Patient has since developed a good relationship with personal wellness and is established with coping mechanisms. Denies need for medication. No SI/HI.PHQ-9: 2.5. #HLD: Total cholesterol elevated at 233, LDL 164. Patient encouraged to continue maintaing lifestyle changes. Plan to reinitate treatment with atorvastatin 10mg once daily. #Restless leg: Continue ropinirole 0.5 mg and amitriptyline 25 mg at bedtime. Patient seen and examined. Comprehensive discussion was done on the followin. Discussed the importance of a diet rich in fruit, vegetables, legumes and healthy fats. Patient advised to avoid processed food and carbohydrates, added sugars, and saturated/trans fats. When possible, prepare your own meals and avoid fast food. Read nutrition labels - avoid ingredients including high fructose corn syrup and preservatives. Be contentious of daily calorie intake and weight. 2. Discussed the importance of regular physical activity. Recommended a goal 6-10k steps or 30 minutes of walking per day. Discussed the benefit of weight-bearing exercise and strength training with proper body mechanics/safety precautions. Other activities including cycling, hiking, etc. are recommended and encouraged. Patient advised to seek medical attention for any SOB, chest pain, muscle or joint pain associated with exercise. 3. Discussed risks and benefits of age-appropriate screening guidelines including but not limited to colonoscopy (due to establish care with GI 12/2024), mammogram (ordered), breast examinations, and PAP smears (UTD 2023). 4. Discussed safe driving, utilization of seat belts, and the importance of refraining from smartphone while driving. 5. Age-appropriate immunizations were discussed including but not limited to influenza vaccine, COVID-vaccine, Tdap vaccine, etc. All questions answered to the patients satisfaction. Patient demonstrates understanding of diagnosis and treatments discussed. Follow-up at next scheduled appointment, sooner should any questions/concer ns arise. Case discussed with collaborating physician Jessica Johnson who has reviewed the assessment/plan. Chart, medications, labs, and vital signs reviewed. Dictation completed with the use of [facility] voice recognition software, prone to medical misidentificatio ns and grammatical errors. All errors are unintentional. Although the practitioner does try to identify and correct errors, some may be present. Please do not hesitate to contact the practitioner for clarification. 11/06/2024 Restless leg syndrome (ICD-10 - G25.81) Farzana is a 49-year-old female with a PMH of celiac, anxiety, depression, HLD, restless leg that presents today to establish care as a new patient. #Labs: Baseline laboratory evaluation including CBC, CMP, lipid panel, hemoglobin A1c, TSH, and vitamin D drawn 10/24/2024, reviewed today #Celiac: Patient is gluten-free. Struggles with constipation. Patient encouraged to continue hydrating adequately and also implement a bowel regimen. Recommending daily fiber supplement. Consider use of stool softener such as docusate or senna. Can use MiraLAX as needed. Also discussed option such as Linzess, sample provided. Reviewed proper use and side effects including but not limited to diarrhea. #Anxiety/depress ion: Patient previously taking antidepressant, discontinued during COVID. Patient has since developed a good relationship with personal wellness and is established with coping mechanisms. Denies need for medication. No SI/HI.PHQ-9: 2.5. #HLD: Total cholesterol elevated at 233, LDL 164. Patient encouraged to continue maintaing lifestyle changes. Plan to reinitate treatment with atorvastatin 10mg once daily. #Restless leg: Continue ropinirole 0.5 mg and amitriptyline 25 mg at bedtime. Patient seen and examined. Comprehensive discussion was done on the followin. Discussed the importance of a diet rich in fruit, vegetables, legumes and healthy fats. Patient advised to avoid processed food and carbohydrates, added sugars, and saturated/trans fats. When possible, prepare your own meals and avoid fast food. Read nutrition labels - avoid ingredients including high fructose corn syrup and preservatives. Be contentious of daily calorie intake and weight. 2. Discussed the importance of regular physical activity. Recommended a goal 6-10k steps or 30 minutes of walking per day. Discussed the benefit of weight-bearing exercise and strength training with proper body mechanics/safety precautions. Other activities including cycling, hiking, etc. are recommended and encouraged. Patient advised to seek medical attention for any SOB, chest pain, muscle or joint pain associated with exercise. 3. Discussed risks and benefits of age-appropriate screening guidelines including but not limited to colonoscopy (due to establish care with GI 12/2024), mammogram (ordered), breast examinations, and PAP smears (UTD 2023). 4. Discussed safe driving, utilization of seat belts, and the importance of refraining from smartphone while driving. 5. Age-appropriate immunizations were discussed including but not limited to influenza vaccine, COVID-vaccine, Tdap vaccine, etc. All questions answered to the patients satisfaction. Patient demonstrates understanding of diagnosis and treatments discussed. Follow-up at next scheduled appointment, sooner should any questions/concer ns arise. Case discussed with collaborating physician Jessica Johnson who has reviewed the assessment/plan. Chart, medications, labs, and vital signs reviewed. Dictation completed with the use of [facility] voice recognition software, prone to medical misidentificatio ns and grammatical errors. All errors are unintentional. Although the practitioner does try to identify and correct errors, some may be present. Please do not hesitate to contact the practitioner for clarification. 11/06/2024 Encounter for examination of blood pressure without abnormal findings (ICD-10 - Z01.30) Farzana is a 49-year-old female with a PMH of celiac, anxiety, depression, HLD, restless leg that presents today to establish care as a new patient. #Labs: Baseline laboratory evaluation including CBC, CMP, lipid panel, hemoglobin A1c, TSH, and vitamin D drawn 10/24/2024, reviewed today #Celiac: Patient is gluten-free. Struggles with constipation. Patient encouraged to continue hydrating adequately and also implement a bowel regimen. Recommending daily fiber supplement. Consider use of stool softener such as docusate or senna. Can use MiraLAX as needed. Also discussed option such as Linzess, sample provided. Reviewed proper use and side effects including but not limited to diarrhea. #Anxiety/depress ion: Patient previously taking antidepressant, discontinued during COVID. Patient has since developed a good relationship with personal wellness and is established with coping mechanisms. Denies need for medication. No SI/HI.PHQ-9: 2.5. #HLD: Total cholesterol elevated at 233, LDL 164. Patient encouraged to continue maintaing lifestyle changes. Plan to reinitate treatment with atorvastatin 10mg once daily. #Restless leg: Continue ropinirole 0.5 mg and amitriptyline 25 mg at bedtime. Patient seen and examined. Comprehensive discussion was done on the followin. Discussed the importance of a diet rich in fruit, vegetables, legumes and healthy fats. Patient advised to avoid processed food and carbohydrates, added sugars, and saturated/trans fats. When possible, prepare your own meals and avoid fast food. Read nutrition labels - avoid ingredients including high fructose corn syrup and preservatives. Be contentious of daily calorie intake and weight. 2. Discussed the importance of regular physical activity. Recommended a goal 6-10k steps or 30 minutes of walking per day. Discussed the benefit of weight-bearing exercise and strength training with proper body mechanics/safety precautions. Other activities including cycling, hiking, etc. are recommended and encouraged. Patient advised to seek medical attention for any SOB, chest pain, muscle or joint pain associated with exercise. 3. Discussed risks and benefits of age-appropriate screening guidelines including but not limited to colonoscopy (due to establish care with GI 12/2024), mammogram (ordered), breast examinations, and PAP smears (UTD 2023). 4. Discussed safe driving, utilization of seat belts, and the importance of refraining from smartphone while driving. 5. Age-appropriate immunizations were discussed including but not limited to influenza vaccine, COVID-vaccine, Tdap vaccine, etc. All questions answered to the patients satisfaction. Patient demonstrates understanding of diagnosis and treatments discussed. Follow-up at next scheduled appointment, sooner should any questions/concer ns arise. Case discussed with collaborating physician Jessica Johnson who has reviewed the assessment/plan. Chart, medications, labs, and vital signs reviewed. Dictation completed with the use of [facility] voice recognition software, prone to medical misidentificatio ns and grammatical errors. All errors are unintentional. Although the practitioner does try to identify and correct errors, some may be present. Please do not hesitate to contact the practitioner for clarification. Plan Of Treatment Pending Test Test Name Order Date Mammogram 09/21/2024 Colonoscopy 09/22/2024 LIPID PANEL, STANDARD 09/21/2024 LIPID PANEL, STANDARD 11/06/2024 COMPREHENSIVE METABOLIC PANEL 09/21/2024 CBC (INCLUDES DIFF/PLT) 09/21/2024 HEMOGLOBIN A1c 09/21/2024 TSH W/REFLEX TO FT4 09/21/2024 VITAMIN D,25-OH,TOTAL,IA 09/21/2024 Next Appt Details Provider Name:NICOLAS Garcia, 02/26/2025 03:15:00 PM, [address], [address], [place], [address], Provider Name:NICOLAS Garcia, 11/08/2025 09:00:00 AM, [address], [address], [place], [address], Insurance Providers Payer Name Payer Address Payer Phone Subscriber Number Group Number Insured Name Patient Relationship to Insured Coverage Start Date Coverage End Date [facility] and [facility] [address] [place] [address] [id number] McDonnel l, Farzana Self - patient is the insured Medical (General) History Surgical History Surgery Date(Month/Year) Right achilles tendon repair 2014
== END 2025-01-10 13:19 | disposition home or self-care (01) ==
PROVIDERS: Visit Provider Nurse Practitioner Family
DX: Z01.818 Encounter for other preprocedural examination (principal); Z12.11 Encounter for screening for malignant neoplasm of colon; K90.0 Celiac disease; E78.2 Mixed hyperlipidemia
CPT/HCPCS: S0285

== ENCOUNTER 2025-02-16 07:47 | Day surgery (SDC) | payer BC, SELFPAY ==
--- OUTSIDE RECORDS SUMMARY | 2024-10-30 11:15 | XMS_ITS ---
Author Organization [facility] [address] Address [address] [place] [address] Care Team Providers Care Sheet Fed Printer Name Role Phone PACHECO NICOLAS Unavailable [phone] REASON FOR VISIT labs Encounters Encounter Location Date Provider Diagnosis [facility] [address] [place] [address] 10/30/2024 NICOLAS BERGMAN Plan Of Treatment Next Appt Details Provider Name:NICOLAS MANDEEP Garcai, 02/26/2025 03:15:00 PM, [address], [place], [address], Provider Name:NICOLAS MANDEEP Garcia, 11/08/2025 09:00:00 AM, [address], [address], [place], [address], Progress Notes * CHRISKenneth NEWTONaDOB:1975 (49 yo F)Acc No.[id number]:10/30/2024 CPE Patient: Farzana ARTIS Provider: Anthony BERGMAN PA-C :1975 A ge:49 Y S ex:Female Date:10/30/2024 Address:[address] [place] [address] [id number] Subjective: * Chief Complaints: * 1 . Labs. * Medical History: Objective: * Vitals: Assessment: Plan: * Treatment: * Images: Billing Information: * Visit Code: * Procedure Codes: Care Plan Details* * Electronic signature of CHARLIE BERGMAN PA-C on 01/31/2025 at 06:02 PM EDT Sign off status: Pending * Provider: Anthony BERGMAN PA-C Date: 0 10/30/2024 Generated for Cody patel/Shaka/Pavan on: 1 06:02 PM EDT
--- OUTSIDE RECORDS SUMMARY | 2025-01-31 18:03 | XMS_ITS | Patient Health Record ---
Author Organization [facility] [address] Address [address] [place] [address] Care Team Providers Care Dredge Mate Name Role Phone NICOLAS BERGMAN Unavailable [phone] Allergies Allergen (clinical drug ingredient) Drug/Non Drug Allergy documented on EMR Reaction Allergy Type Onset Date Status celiac(gluten) (uncoded) Unknown Allergy Active seasonal (uncoded) Unknown Allergy A ctive Results Component Value Reference Range Notes TSH Rfx on Abnormal to Free [id number] Reviewed date:10/25/2024 07:37:15 AM Interpretation: Performing Lab:[facility], [address] [facility], Phone - [phone], Director - MDJodry Notes/Report: TSH 2.460 0.450-4.500 uIU/mL Comp. Metabolic Panel (14)-[id number] Reviewed date:10/25/2024 07:37:15 AM Interpretation: Performing Lab:[facility], [address] [facility], Phone - [phone], Director - MDJodry Notes/Report: Glucose 80 70-99 [...] IU/L ALT (SGPT) 17 0-32 IU/L Lipid Panel-[id number] Reviewed date:10/25/2024 07:37:27 AM Interpretation: Performing Lab:[facility], [address] [facility], Phone - [phone], Director - Eulalio Notes/Report: Cholesterol, Total 233 100-199 mg/dL Triglycerides 120 0-149 mg/dL HDL Cholesterol 47 >39 mg/dL VLDL Cholesterol Javi 22 5-40 mg/dL LDL Chol Calc (NIH) 164 0-99 mg/dL Vitamin D, 59-[id number] Reviewed date:10/25/2024 07:37:15 AM Interpretation: Performing Lab:[facility] [place], [address] [place] [address], Phone - [phone], Director - Eulalio Notes/Report: Vitamin D, 25-Hydroxy 43.0 30.0-100.0 ng/mL Vitamin D deficiency has been defined by the [place] of Medicine and an Endocrine Society practice guideline as a level of serum 25-OH vitamin D less than 20 ng/mL (1,2). The Endocrine Society went on to further define vitamin D insufficiency as a level between 21 and 29 ng/mL (2). 1. IOM ([place] of Medicine). 2010. Dietary reference intakes for calcium and D. [place]: The National Academies Press. 2. Daksha MF, Josselyn NC, Stefany BISHOP, et al. Evaluation, treatment, and prevention of vitamin D deficiency: an Endocrine Society clinical practice guideline. JCEM. 2010; 96(7):1911-30. CBC With Differential/Platel et-[id number] Reviewed date:10/25/2024 07:37:15 AM Interpretation: Performing Lab:[facility], [address] [facility], [place], Phone - [phone], Director - Eulalio Notes/Report: WBC 4.3 3.4-10.8 [...] Immature Grans (Abs) 0.0 0.0-0.1 x10E3/uL Hemoglobin [id number] Reviewed date:10/25/2024 07:37:15 AM Interpretation: Performing Lab:[facility], [address] [facility] [address], [place], Phone - [phone], Director - Eulalio Notes/Report: Hemoglobin A1c 5.4 [...] W/U Status Risk Notes Problem Celiac disease (301679072) Celiac disease (K90.0) Active confirmed Problem Irritable bowel syndrome characterized by constipation (811740548) Irritable bowel syndrome with constipation (K58.1) Active confirmed Problem Restless legs syndrome (88430551) Restless leg syndrome (G25.81) Active confirmed Problem Anxiety depression (022237191) Anxiety with depression (F41.8) Active confirmed Problem Hyperlipidemia (96261840) Hyperlipidemia (E78.5) Active confirmed Vital Signs Heart Rate 66 /min 11/06/2024 Oximetry 98 % 11/06/2024 Blood pressure diastolic 80 mm Hg 11/06/2024 Height 73 in 11/06/2024 Blood pressure systolic 124 mm Hg 11/06/2024 Weight 187.6 lbs 11/06/2024 BMI 24.75 kg/m2 11/06/2024 Encounters Encounter Location Date Provider Diagnosis [facility] [address] 09/21/2024 NICOLAS BERGMAN Celiac disease K90.0 ; Anxiety with depression F41.8 ; Hyperlipidemia E78.5 ; Restless leg syndrome G25.81 and Encounter for examination of blood pressure without abnormal findings Z01.30 [facility] [address] 11/06/2024 NICOLAS BERGMAN Anxiety with depress ion F41.8 ; Annual physical exam Z00.00 ; Celiac disease K90.0 ; Irritable bowel syndrome with constipation K58.1 ; Hyperlipidemia E78.5 ; Restless leg syndrome G25.81 and Encounter for examination of blood pressure without abnormal findings Z01.30 [facility] [address] 09/22/2024 NICOLAS BERGMAN Encounter for screen ing colonoscopy Z12.11 [facility] [address] 11/28/2024 NICOLAS ELLERBE [facility] [address] [place] [address] 11/30/2024 NICOLAS ALEMANHAM [facility] [address] 12/05/2024 NICOLAS ELLERBE [facility] [address] 08/16/2024 NICOLAS ELLERBE [facility] [address] 08/16/2024 NICOLAS ELLERBE [facility] [address] [address] 09/19/2024 NICOLAS ELLERBE [facility] [address] [address] 09/22/2024 NICOLAS ALEMANHAM [facility] [address] [address] 09/22/2024 NICOLAS ELLERBE Assessments Encounter Date Diagnosis (ICD Code) Assessment [...] #Celiac: Patient is gluten-free. Previously followed with [facility] , records requested for review. #Anxiety/depress [...] reviewed. Dictation completed with the use of [employer] voice recognition software, prone to medical misidentificatio [...] #Celiac: Patient is gluten-free. Previously followed with [facility] , records requested for review. #Anxiety/depress [...] reviewed. Dictation completed with the use of [employer] voice recognition software, prone to medical misidentificatio [...] reviewed. Dictation completed with the use of [employer] voice recognition software, prone to medical misidentificatio [...] reviewed. Dictation completed with the use of [employer] voice recognition software, prone to medical misidentificatio [...] reviewed. Dictation completed with the use of [employer] voice recognition software, prone to medical misidentificatio [...] #Celiac: Patient is gluten-free. Previously followed with [facility] , records requested for review. #Anxiety/depress [...] reviewed. Dictation completed with the use of [employer] voice recognition software, prone to medical misidentificatio [...] #Celiac: Patient is gluten-free. Previously followed with [facility] , records requested for review. #Anxiety/depress [...] reviewed. Dictation completed with the use of [employer] voice recognition software, prone to medical misidentificatio [...] reviewed. Dictation completed with the use of [employer] voice recognition software, prone to medical misidentificatio [...] #Celiac: Patient is gluten-free. Previously followed with [facility] , records requested for review. #Anxiety/depress [...] reviewed. Dictation completed with the use of [employer] voice recognition software, prone to medical misidentificatio [...] reviewed. Dictation completed with the use of [employer] voice recognition software, prone to medical misidentificatio [...] reviewed. Dictation completed with the use of [employer] voice recognition software, prone to medical misidentificatio [...] reviewed. Dictation completed with the use of [employer] voice recognition software, prone to medical misidentificatio [...] 03:15:00 PM, [address], [place], [address], Provider Name:NICOLAS Garcia, 11/08/2025 09:00:00 AM, [address], [place], [address], Insurance Providers Payer Name Payer Address Payer Phone Subscriber Number Group Number Insured Name Patient Relationship to Insured Coverage Start Date Coverage End Date [facility] and [facility] [address] [place] [address] [id number] McDonnel l, Farzana Self - patient is the insured Medical (General) History Surgical History Surgery Date(Month/Year) Right achilles tendon repair 2014
--- NOTE | 2025-02-13 15:14 | P.CONAN_ITS ---
Documented by User: Bryanna Alarcon NP 02/13/25 15:14 HPI - Anesthesia Eval Consult details Narrative: 49 yr old female for Upper Endoscopy and Colonoscopy [facility] Active Problems Active Problems: All Active Problems Hyperlipemia (Acute) Celiac disease (Acute) Colon cancer screening (Acute) Past Medical History Medical History RLS (restless legs syndrome) Anxiety Depression Hyperlipemia Celiac disease Colon cancer screening Family History Family History Father Prostate CA Stroke Mother Hyperlipemia Hyperthyroidism Paternal Grandfather Bone cancer Maternal Grandfather No problems noted. Maternal Grandmother Hyperlipemia Heart disease Surgical History Surgical History Hx of Achilles tendon repair Surgical history unknown Social History Social History Household Members: Family Alcohol intake: current Alcohol intake frequency: holidays/special occasions only Patient Tobacco Use Status: Never used Tobacco Use of substances other than those prescribed or required for medical reasons: No Are you DNR?: No Advance Directives: No Advance Directives Information Provided: Yes FDLMP: November 2024 Meds Allergies Allergy/AdvReac Type Severity Reaction Status Date / Time gluten Allergy Intermediate Diarrhea Verified 01/10/25 12:45 Home Medications ?Medication ?Instructions ?Recorded ?Confirmed ?Last Taken ?Type amitriptyline 25 mg tablet 25 mg PO BEDTIME 01/10/25 1 Unknown History atorvastatin 10 mg tablet 10 mg PO DAILY 01/10/2501/19 Unknown History ropinirole 0.5 mg tablet 0.5 mg PO QPM 01/10/2502/16 Unknown History Documented by User: Lucia Porter MD 02/16/25 08:54 PMFSH Past Medical History Medical History RLS (restless legs syndrome) Anxiety Depression Hyperlipemia Celiac disease Colon cancer screening Family History Family History Father Prostate CA Stroke Mother Hyperlipemia Hyperthyroidism Paternal Grandfather Bone cancer Maternal Grandfather No problems noted. Maternal Grandmother Hyperlipemia Heart disease Surgical History Surgical History Hx of Achilles tendon repair Surgical history unknown History of Problems with Anesthesia: No Social History Social History Household Members: Family Alcohol intake: current Alcohol intake frequency: holidays/special occasions only Patient Tobacco Use Status: Never used Tobacco Use of substances other than those prescribed or required for medical reasons: No Are you DNR?: No Advance Directives: No Advance Directives Information Provided: Yes FDLMP: November 2024 Meds Allergies Allergy/AdvReac Type Severity Reaction Status Date / Time gluten Allergy Intermediate Diarrhea Verified 01/10/25 12:45 Home Medications ?Medication ?Instructions ?Recorded ?Confirmed ?Last Taken ?Type amitriptyline 25 mg tablet 25 mg PO BEDTIME 01/10/25 1 Unknown History atorvastatin 10 mg tablet 10 mg PO DAILY 01/10/2501/19 Unknown History ropinirole 0.5 mg tablet 0.5 mg PO QPM 01/10/2502/16 Unknown History Exam Airway Mallampati Class: II TM Dist: >3cm Neck ROM: Full Loose/Missing/Broken Teeth: No Heart: RRR Lungs: CTA Assessment and Plan Assessment Anesthesia Assessment: Anesthesia Plan Discussed and Chart Reviewed Final Anesthetic Review History of Problems with Anesthesia: No NPO: Yes ASA Class: II Final Preanesthetic Review: Meds/Allgs Chart Reviewed, Consent Obtained/Reviewed and Anes Risks/Benef Reviewed Patient Risk: Low Procedure Risk: Intermediate Anesthetic Plan Anesthetic Plan: MAC: Disposition: Standard PACU
[2025-02-14 13:45] VITALS: BMI 23.7
--- NOTE | 2025-02-16 07:35 | MHC.SHP ---
Pre-Procedural Eval Section A - 24 Hr Update-Section A only Date of Service: 02/16/25 The patient is an INPATIENT: No The patient has been examined within 24 hours of the surgical procedure. The History & Physical has been completed within 30 days and I have reviewed it.: No Section B - Complete if H&P > 30 days Chief Complaint: screening, follow-up of celiac disease Relevant Family History (Specify if Yes): No Relevant Social History: None Present Medications: see Short Stay Collaborative assessment Medical History: Significant History (Hyperlipemia Celiac disease Colon cancer screening) Allergies: Allergies Allergy/AdvReac Type Severity Reaction Status Date / Time gluten Allergy Intermediate Diarrhea Verified 01/10/25 12:45 Review of Systems Sugical H&P ROS: Negative: Constitution, Cardiovascular, Respiratory and Gastrointestinal Exam Surgical H&P Exam: Normal: Heart, Normal: Lungs, Normal: Extremities and Normal: Abdomen Plan Diagnosis/Plan: Unchanged I have reviewed the history and physical and performed a pertinent physical examination on my patient. No changes have occurred unless specified. Time Spent With Patient Time: Total time managing care of this patient today ____ minutes.
[2025-02-16 08:20] VITALS: BMI 23.8
[2025-02-16 08:29] VITALS: BP 115/79; PULSE 80; RESP 14; TEMP 36.2; O2SAT 99
[2025-02-16 08:37] LABS: UPreg QC Valid YES
[2025-02-16] MEDS: Lactated Ringers 1,000 ML 100 ML IVCONT (08:43)
--- NOTE | 2025-02-16 10:57 | P.OPN-COLO_ITS ---
Colonoscopy Operative Note Operative Note Date of Service: 02/16/25 Narrative: FLEXIBLE TRANSORAL UPPER GASTROINTESTINAL ENDOSCOPY WITH BIOPSIES AND COLONOSCOPY TILL CECUM WITH [] Pre-op diagnosis: Colon cancer screening, follow-up of celiac disease Post-op diagnosis: Gastric polyp, Gastritis, celiac disease, Colon Polyps, Diverticulosis, hemorrhoids Specimens and Sources: : A- Small bowel BXS follow up celiac disease ?B- Gastric antrum BXS ?C- Gastric body BX ?D- Gastric polyp ?E- Ascending colon polyp ?F- BX right colon r/o melanosis coli ?G- Polyp ileocecal valve ? Endoscopist:? Suzi Nam MD Anest[place] [place] Consent: Indications for the procedure and potential complications of bleeding, perforation, reaction to medications and missed diagnosis were discussed with the patient and informed consent was obtained. HCG Instrument: Olympus GIF H 190 mid size upper endoscope Monitoring: Vital signs and clinical assessment, continuous EKG monitoring, Pulse oximetry, Carbon Dioxide monitoring and blood pressure monitoring were done throughout the procedure. Procedure: The patient was placed in the left lateral decubitis position and pre-procedure medications were administered and a bite block was placed. The endoscope was inserted into the mouth and advanced under direct vision to the third part of duodenum. A careful inspection was made as the upper endoscope was withdrawn including a retroflexed examination of the proximal stomach; Findings and interventions are described below. Findings: Larynx: Normal Esophagus: GE junction at 40 cms. No esophagitis or Weeks's. Stomach: A 5-6 mm benign appearing polyp in the gastric fundus - biopsied. Moderate diffuse gastric erythema - biopsies were obtained from the gastric body and antrum. Grade 2 flap valve on retroflexed examination of the cardia. Duodenum: Normal bulb and descending duodenum Biopsies were obtained from descending duodenum to follow up on celiac sprue Intervention: Biopsies as noted above COLONOSCOPY PROCEDURE NOTE Instrument: Olympus CF H 190 L variable stiffness adult colonoscope Monitoring: Vital signs and clinical assessment, intermittent blood pressure monitoring, continuous EKG monitoring, Pulse oximetry and Carbon Dioxide monitoring were done throughout the procedure. Please see anesthesia flowsheet. Colon withdrawl time was 20 minutes. Procedure: The patient was placed in the left lateral decubitis position and pre-procedure medications were administered. After a digital rectal examination of the ano-rectum, the video colonoscope was inserted into the rectum and advanced through the colon to the cecum. The colonoscope was slowly withdrawn in a retrograde panoramic fashion and the colon mucosa was carefully examined including a retroflexed view of the rectum. Findings and interventions are described below. Procedure Difficulty: Colon was long and tortuous and there was some loop formation. Patient was placed in the supine position and LLQ pressure was applied to intubate the ascending colon Findings: Terminal Ileum: Not evaluated Cecum: Moderate diffuse melanosis coli throughout the entire colon. A 10-12 mm sessile polyp overlying the distal lip of the ICV - removed with a hot snare. Ascending Colon: A 10-12 mm sessile polyp in the proximal ascending colon - removed with a hot snare. Moderate diffuse melanosis coli throughout the entire colon - biopsies were obtained from the right colon Transverse Colon: Moderate diffuse melanosis coli throughout the entire colon. Descending Colon: Moderate diffuse melanosis coli throughout the entire colon. Sigmoid Colon: Moderate diverticulosis Rectum: Normal Ano-rectum: Moderate internal hemorrhoids Colon preparation: Good after some irrigation. Colome Bowel Preparation Scale Right colon; 2 Transverse colon: 2 Left colon; 2 (0 = Unprepared colon segment with mucosa not seen due to solid stool that cannot be cleared. 1 = Portion of mucosa of the colon segment seen, but other areas of the colon segment not well seen due to staining, residual stool and/or opaque liquid. 2 = Minor amount of residual staining, small fragments of stool and/or opaque liquid, but mucosa of colon segment seen well. 3 = Entire mucosa of colon segment seen well with no residual staining, small fragments of stool or opaque liquid) Impression and Post Procedure Diagnosis: Endoscopy Findings: ESOPHAGUS: Normal STOMACH: Diffuse gastritis and benign-appearing gastric polyp DUODENUM: Normal - biopsies were obtained to follow-up on celiac sprue Colonoscopy Findings: Two medium sized polyps were removed Moderate diverticulosis seen in the sigmoid colon Moderate diffuse melanosis coli throughout the entire colon - biopsies were obtained from the right colon. Moderate hemorrhoids on retroflexed exam. Plan: Pt to schedule a FU appointment with Rubi Alves NP Repeat Colonoscopy in 3-5 years if polyps are adenomatous and 10 year if polyps are hyperplastic. A summary of above findings and relevant handouts were given to the patient.
[2025-02-16 11:48] VITALS: BP 102/67; PULSE 77; RESP 16; TEMP 36.2; O2SAT 99
[2025-02-16 12:03] VITALS: BP 102/67; PULSE 77; RESP 16; TEMP 36.2; O2SAT 99
== END 2025-02-16 12:31 | disposition home or self-care (01) ==
PROVIDERS: Nurse Practitioner; Visit Provider Internal Medicine Gastroenterology
PROC: (CPT 45385; principal; 2025-02-16 09:20)
DX: Z12.11 Encounter for screening for malignant neoplasm of colon (principal); K90.0 Celiac disease; K64.8 Other hemorrhoids; K29.70 Gastritis, unspecified, without bleeding; D13.1 Benign neoplasm of stomach; K57.30 Diverticulosis of large intestine without perforation or abscess without bleeding; K63.89 Other specified diseases of intestine; D12.2 Benign neoplasm of ascending colon
CPT/HCPCS: 45385; 43239; 36415; 81025; 84702; 88305; 88313; 88342; J2704